=== PATIENT | male | born 1970 | race Caucasian/White ===

== ENCOUNTER 2016-12-08 02:43 | Emergency (ER) | payer BC ==
[2016-12-08] MEDS ORDERED: NS 0.9% 1000 ML* 1,000 ML IV ONE ×2 (03:09→04:28)
[2016-12-08] MEDS ORDERED: Ondansetron INJ* 2 MG/ML VIAL IV ONE (03:09)
[2016-12-08] MEDS ORDERED: Ketorolac INJ* 30 MG/ML 1 ML VIAL IV ONE (03:09)
[2016-12-08 03:30] LABS: Hematocrit 36 % (42-52); Mean Corpuscular HGB Conc 34 g/dl (31-36); Mean Corpuscular Hemoglobin 25 pg (27-31); Mean Corpuscular Volume 76 fL (80-94); Mean Platelet Volume 7 um3 (7.4-10.4); Red Blood Count 4.74 10^6/ul (4.0-5.4); Red Cell Distribution Width 22 % (10.5-15); White Blood Count 7.9 10^3/ul (3.5-10.8)
[2016-12-08 03:31] LABS: Add Diff/Slide Review? Slide Review Added; Comments Flag Yes
[2016-12-08 03:33] LABS: Urine Bacteria Absent (Absent); Urine Bilirubin Negative (Negative); Urine Glucose Negative (Negative); Urine Nitrite Negative (Negative)
[2016-12-08 03:44] LABS: Albumin 4.2 g/dL (3.2-5.2); BUN/Creatinine Ratio 13.6 (8-20); C Reactive Protein 4.05 mg/L (< 5.00); Calcium 9.1 mg/dL (8.6-10.3); EGFR African American 59.8 (>60); EGFR Non-African American 46.5 (>60); Globulin 2.4 g/dL (2-4); Potassium 3.6 mmol/L (3.5-5.0); Total Bilirubin 0.8 mg/dL (0.2-1.0); Total Protein 6.6 g/dL (6.4-8.9)
[2016-12-08] MEDS ORDERED: Morphine INJ* 2 MG/ML 1 ML SYRINGE IV ONE ×2 (04:08→04:29)
--- NOTE | 2016-12-08 04:17 | ED ---
Yola Maza Rebecca, scribed for Mark Flores MD on 12/08/16 at 0310 . Back Pain - HPI Summary HPI Summary: Pt is a 46 y/o M who presents to ED c/o L flank pain. Sx began at 1600 last night while laying down and have been intermittent since onset. Pain began in the abdomen and is not in the L flank and mild, ranked 3/10. Sx aggravated as tightness and treated with Ibuprofen and Tramadol P[employer] which did not alleviate sx. Sx aggravated by palpation, alleviated by heat and cold. Additionally c/o nausea secondary to pain. Denies fever, chills, dysuria. No prior similar episodes. - History of Current Complaint Chief Complaint: EDFlankPain Stated Complaint: LEFT FLANK PAIN/NAUSEA Time Seen by Provider: 12/08/16 03:04 Hx Obtained From: Patient Onset/Duration: Still Present Onset/Duration: Started Hours Ago - Began last night at 1600, Still Present Timing: Intermittent Back Pain Location: Is Discrete @ - L flank Severity Currently: Mild Pain Intensity: 3 Pain Scale Used: 0-10 Numeric Character: Stiffness - Tightness Alleviating Symptom(s): Heat, Cold Associated Signs And Symptoms: Positive: Other - Nausea secondary to pain - Allergies/Home Medications Allergies/Adverse Reactions: Allergies Allergy/AdvReac Type Severity Reaction Status Date / Time Naproxen Allergy Anxiety Verified 12/08/16 04:06 PMH/Surg Hx/FS Hx/Imm Hx Endocrine/Hematology History: Denies: Hx Diabetes Cardiovascular History: Denies: Hx Coronary Artery Disease, Hx Hypertension Infectious Disease History: No Infectious Disease History: Denies: Traveled Outside the [place] in Last 30 Days - Family History Known Family History: Positive: Other - [place] (father) Negative: Cardiac Disease, Hypertension, Diabetes - Social History Alcohol Use: Occasionally Substance Use Type: Reports: None Smoking Status (MU): Never Smoked Tobacco Review of Systems Negative: Fever, Chills Positive: Nausea Positive: pain - L flank pain. Negative: dysuria All Other Systems Reviewed And Are Negative: Yes Physical Exam Triage Information Reviewed: Yes Vital Signs On Initial Exam: Initial Vitals Temp Pulse Resp BP Pulse Ox 97.4 F 62 16 130/86 99 12/08/16 03:00 12/08/16 03:00 12/08/16 03:00 12/08/16 03:00 12/08/16 03:00 Vital Signs Reviewed: Yes Appearance: Positive: Well-Appearing, Pain Distress - mild discomfort Skin: Positive: Warm Head/Face: Positive: Normal Head/Face Inspection Eyes: Positive: CIRA ENT: Positive: Hearing grossly normal Neck: Positive: Supple Respiratory/Lung Sounds: Positive: Breath Sounds Present Cardiovascular: Positive: RRR Abdomen Description: Positive: Nontender, No Organomegaly, Soft. Negative: CVA Tenderness (R), CVA Tenderness (L) Bowel Sounds: Positive: Present Musculoskeletal: Positive: Strength/ROM Intact Neurological: Positive: Alert, Oriented to Person Place, Time Psychiatric: Positive: Affect/Mood Appropriate Diagnostics - Vital Signs Vital Signs Temp Pulse Resp BP Pulse Ox 12/08/16 03:00 97.4 F 62 16 130/86 99 - Laboratory Result Diagrams: 12/08/16 03:16 12/08/16 03:16 Lab Statement: Any lab studies that have been ordered have been reviewed, and results considered in the medical decision making process. - CT CT Abd/Pel CT Interpretation: Positive (See Comments) - 2 mm stone proximal left ureter causing minimal hydronephrosis. Punctate stone left kidney. Unremarkable pancreas and gallbladder. Borderline splenomegaly. No bowel obstruction, colitis , free fluid or free air. Normal appendix. Atherosclerotic calcifications right common iliac artery and bilateral internal iliac arteries. ED physician reviewed this radiology report and agrees. CT Interpretation Completed By: Radiologist Re-Evaluation - Re-Evaluation First Eval Re-Evaluation Time: 04:28 Change: Improved Comment: Discussed results with the pt. He continues to be in pain. Back Pain Course/Dx - Course Assessment/Plan: Pt is a 46 y/o M who presents to ED c/o L flank pain. Sx began at 1600 last night while laying down and have been intermittent since onset. Pain began in the abdomen and is not in the L flank and mild, ranked 3/10. Sx aggravated as tightness and treated with Ibuprofen and Tramadol P[employer] which did not alleviate sx. Sx aggravated by palpation, alleviated by heat and cold. Additionally c/o nausea secondary to pain. Denies fever, chills, dysuria. No prior similar episodes. CT Abd/Pel reveals "2 mm stone proximal left ureter causing minimal hydronephrosis. Punctate stone left kidney. Unremarkable pancreas and gallbladder. Borderline splenomegaly. No bowel obstruction, colitis , free fluid or free air. Normal appendix. Atherosclerotic calcifications right common iliac artery and bilateral internal iliac arteries." In the ED course, pt was administered Toradol, Morphine, Zofran, and fluids. Pt will be D/C to home with Dx of renal colic, Rx for Flomax and a follow up with his PCP. He understands and agrees. Elevated BP noted and advised to f/u with PCP. - Diagnoses Provider Diagnoses: Renal colic Discharge - Discharge Plan Condition: Stable Disposition: HOME Prescriptions: Tamsulosin CAP* [Flomax CAP*] 0.4 mg PO DAILY #7 cap Patient Education Materials: Renal Colic (ED) Referrals: Non Staff,Doctor [Primary Care Provider] - 3 Days Additional Instructions: Return to ED for any returning or worsening symptoms. The documentation as recorded by the Yola fry Rebecca accurately reflects the service I personally performed and the decisions made by , Mark Flores MD.
[2016-12-08] MEDS ORDERED: oxyCODONE/Acetamin 5/325 MG* TAB PO ONE (04:51)
[2016-12-08 06:35] VITALS: BP 117/82
--- NOTE | 2016-12-08 08:01 | RAD ---
CLINICAL HISTORY: Left flank pain COMPARISON: None TECHNIQUE: Multiple contiguous axial CT scans were obtained of the abdomen and pelvis, without intravenous contrast enhancement. Coronal and sagittal multiplanar reformations are submitted for review. Oral contrast was not administered. FINDINGS: The study is limited by the lack of intravenous contrast. This limits evaluation of the solid organs and vasculature. LUNG BASES: The lung bases are clear. LIVER: The liver is normal in shape, size, contour, and attenuation. BILE DUCTS: There is no intrahepatic or extrahepatic biliary dilatation. GALLBLADDER: The gallbladder is normal, without pericholecystic inflammatory change. PANCREAS: The pancreas is normal, without mass or ductal dilatation. SPLEEN: The spleen is at the upper limits of normal size UPPER GI TRACT: Evaluation of the gastrointestinal tract is limited by incomplete gastric distention. The upper GI tract is unremarkable. SMALL BOWEL AND MESENTERY: The small bowel is normal in contour, course, and caliber. There is no obstruction or dilatation. COLON: The colon is normal in contour, course, caliber. There is no pericolonic inflammatory change. There is a tubular, vermiform, hollow viscus that is blind ending, and originates from the cecum, consistent with a normal appendix. There is no periappendiceal inflammatory change. This is best seen on axial images [id number] ADRENALS: Normal bilaterally. KIDNEYS: There is a 0.3 cm calculus of the proximal left ureter with mild pelviectasis. BLADDER: The bladder is collapsed and is not well evaluated. PELVIC ORGANS: The prostate gland is normal. The seminal vesicles are symmetric. AORTA: The aorta is normal. There is minimal calcified plaque of the common iliac arteries. IVC: Unremarkable LYMPH NODES: There is no lymphadenopathy by size criteria. ABDOMINAL WALL: There is no evidence for abdominal wall hernia. BONES AND SOFT TISSUES: There are mild diffuse degenerative changes. OTHER: None IMPRESSION: SMALL PROXIMAL LEFT URETERAL STONE WITH MILD HYDRONEPHROSIS.
== END 2016-12-08 06:43 | disposition home or self-care (01) ==
LOC: ED 02:43
DX: N23 Unspecified renal colic (principal); R10.84 Generalized abdominal pain
CPT/HCPCS: 36415; 74176; 80053; 81003; 81015; 83690; 85025; 86140; 87086; 96374; 96375; 99283; A9270-GY; J1885; J2270; J2405